=== PATIENT | male | born 1970 | race African-American/Black ===

== ENCOUNTER 2019-06-27 19:59 | Emergency (ER) | payer MEDICAID ==
[~2019-06-27] VITALS: Ht 182.9 cm; Wt 100.0 kg
[2019-06-28 00:05] LABS: CHLORIDE 109 mEq/L (98-107)
[2019-06-28 00:07] LABS: BASOPHILS % 0.6 % (0.0-2.0); EOSINOPHILS % 1.8 % (0.0-5.0); HEMATOCRIT. 44.9 % (42.0-52.0); HEMOGLOBIN. 14.9 g/dL (14.0-18.0); LYMPHOCYTES % 13.6 % (20.0-50.0); MEAN CORPUSCULAR HEMOGLOBIN 27.5 pg (28.0-32.0); MEAN CORPUSCULAR VOLUME 82.8 fL (80.0-94.0); MEAN PLATELET VOLUME 7.8 fl (7.4-10.4); PLATELET 221 x1000/uL (130-400); RED BLOOD CELL COUNT 5.42 mill/uL (4.7-6.1); RED CELL DISTRIBUTION WIDTH 14.2 % (11.6-14.6)
[2019-06-28] MEDS ORDERED: ACETAMINOPHEN 500MG TABLET PO ONE (02:45)
[2019-06-28] MEDS ORDERED: LORATADINE 10MG TABLET PO SCH (02:45)
[2019-06-28 03:53] VITALS: BP 125/89
== END 2019-06-28 03:57 | disposition home or self-care (01) ==
LOC: ER 19:59
DX: R55 Syncope and collapse (principal); S00.03XA Contusion of scalp, initial encounter; W01.0XXA Fall on same level from slipping, tripping and stumbling without subsequent striking against object, initial encounter; Y93.89 Activity, other specified; Y92.524 Gas station as the place of occurrence of the external cause
CPT/HCPCS: 36415; 71045; 80053; 83880; 84484; 85025; 93005; 99285